=== PATIENT | female | born 1990 | race Caucasian/White ===

== ENCOUNTER 2024-03-11 10:48 | Emergency (ER) | payer SELFPAY ==
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
[2024-03-11 12:45] VITALS: TEMP 97.6
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
[2024-03-11] MEDS ORDERED: DELTASONE 20 MG ONE (17:05)
[2024-03-11] MEDS: Robaxin PO ONE (17:31)
[2024-03-11] MEDS: DELTASONE 20 MG PO ONE (17:31)
[2024-03-11 17:59] VITALS: BP 114/70; PULSE 69; RESP 16; O2SAT 100
== END 2024-03-11 18:03 | disposition home or self-care (01) ==
LOC: ED 10:48
DX: H53.8 Other visual disturbances (principal); G44.319 Acute post-traumatic headache, not intractable; F07.81 Postconcussional syndrome; S13.4XXA Sprain of ligaments of cervical spine, initial encounter; V89.2XXA Person injured in unspecified motor-vehicle accident, traffic, initial encounter; Z79.899 Other long term (current) drug therapy
CPT/HCPCS: 70450; 72125; 99283; 99284; A9270-GY